=== PATIENT | male | born 1985 | race Caucasian/White ===

== ENCOUNTER 2016-10-21 20:09 | Emergency (ER) | payer BC ==
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
--- NOTE | 2016-10-27 18:55 | ER ---
ADMIT: 10/21/2016 RM/LOC: ER [facility] MR#: [id number] [facility] [address] [place] [id number] GORGE MARTINEZ [address] [place], [place] [address] Emergency Room Report SEX: M AGE: 31 : 1985 DATE: 10/21/2016 ADDENDUM: This patient was initially seen by ANDREY Schneider. CAT scan of his head was normal. He was discharged. Stitches are to be removed in five days. Follow up with his primary as needed. Please see my T-sheet. ANDREY Hu / Ej Duff MD / modl JOB #: [id number] CC: Ej Duff MD, Attending Physician Gorge Motta MD, Family Physician
== END 2016-10-21 21:40 | disposition home or self-care (01) ==
LOC: ER 20:09
PROC: 0HQ1XZZ Repair Face Skin, External Approach (ICD-10-PCS; principal; 2016-10-21)
DX: S01.81XA Laceration without foreign body of other part of head, initial encounter (principal); W22.8XXA Striking against or struck by other objects, initial encounter